=== PATIENT | female | born 1975 | race Caucasian/White ===

== ENCOUNTER 2016-08-20 19:07 | Emergency (ER) | payer BC ==
[2016-08-20] MEDS ORDERED: IBUPROFEN 600 MG TABLET PO ONE (19:15)
[2016-08-20] MEDS ORDERED: HYDROcodone/ACETAMINOPHEN 1 EACH TABLET PO ONE ×2 (19:15→19:55)
--- NOTE | 2016-08-20 19:16 | ERNOTE ---
Lower Extremity HPI - Narrative Date of Service: 08/20/16 - General Lower Extremities Pain: ankle: right Time Seen by Provider: 08/20/16 19:11 Source: patient, RN notes reviewed Exam Limitations: no limitations - Immun/Allergies/Home Medications Allergies/Adverse Reactions: Allergies Allergy/AdvReac Type Severity Reaction Status Date / Time Penicillins Allergy Unknown Verified 08/20/16 19:26 Home Medications: HOME MEDICATIONS HYDROcodone/ACETAMINOPHEN [[place] 5-325] 1 - 2 tab PO Q6H PRN #20 tab 08/20/16 [ Last Taken Unknown] - History of Present Illness Narrative: Savana is a 41 year old female who presents for a right ankle injury. She tripped and twisted the ankle in a parking lot earlier today. She took ibuprofen shortly after and was able to bear weight on the extremity. She then took a nap this afternoon. When she woke up, her pain was much worse and she could not bear weight. She has not had anything for pain since this morning. Occurred: this morning Location of Incident: other Method of Injury: Reports: fell, twisted Other Injuries: Reports: none Subsequent Symptoms: Denies: sensory loss, numbness Review of Systems - Review of Systems Constitutional: Present: no symptoms reported EYE: Present: no symptoms reported ENT: Present: no symptoms reported Respiratory: Present: no symptoms reported Cardiology: Present: no symptoms reported Gastrointestinal/Abdominal: Present: no symptoms reported Genitourinary: Present: no symptoms reported Musculoskeletal: Present: joint pain, joint swelling Skin: Present: change in color. Absent: lesions, lumps Neurological: Absent: weakness, numbness, tingling Endocrine: Present: no symptoms reported Hematologic/Lymphatic: Present: no symptoms reported Psych: Present: no symptoms reported - Patient's Past Medical History Patient History - Medical: No pertinent hx Patient History - Cardiac/Respiratory: No pertinent hx Patient History - Cancer: No Hx of Cancer Patient History - Surgical Procedures: , D & C - Social History Living Situations: spouse Smoking Status: Never smoker Alcohol Use: occasionally Drug Use: none Physical Exam - Physical Exam General Appearance: Present: wd/wn, alert, mild distress Respiratory: Present: no respiratory distress, no accessory muscle use Cardiovascular/Chest: Present: normal peripheral pulses Peripheral Pulses: N=norm/S=strong/W=weak/B=bound/A=absent: Dorsalis-pedis (R): Strong, Dorsalis-pedis (L): Strong Extremity Exam: Present: decreased range of motion - Right ankle - painful, joint swelling - Right lateral ankle, tender to palpation, ecchymosis present Neurological Exam: Present: alert, oriented, normal mood/affect, no motor/ sensory deficits Skin Exam: Present: normal color, warm/dry ED Progress - Vital Signs Patient's Vital Signs:: I have reviewed the patient's vital signs. - X-Ray X-Ray #1 X-Ray: ankle - Right Interpretation: Interp. by me X-ray Comments: Soft tissue swelling noted over lateral malleolus, no acute osseous abnormality noted - Progress/Reassessment Progress:: Improved Progress Note-Subjective: Verbalizes improvement in pain after meds, LETHA wrap to ankle Departure Clinical Impression: Right ankle sprain Qualifiers: Encounter type: initial encounter Involved ligament of ankle: unspecified ligament Qualified Code(s): S93.401A - Sprain of unspecified ligament of right ankle, initial encounter - Departure Disposition: Home self-care Condition: Good Instructions: Ankle Sprain Additional Instructions: Weight bearing as tolerated LETHA wrap for support Ice and elevate Ibuprofen 600 mg every 6 hours with food Follow up as needed Referrals: Moo Willoughby, PAC [[facility]] - Prescriptions: HYDROcodone/ACETAMINOPHEN [[place] 5-325] 1 - 2 tab PO Q6H PRN #20 tab PRN Reason: Pain
[2016-08-20] MEDS ORDERED: HYDROcodone/ACETAMINOPHEN 1 EACH TABLET ONE ×2 (19:19→20:02)
[2016-08-20] MEDS ORDERED: IBUPROFEN 600 MG TABLET ONE (19:19)
[2016-08-20 19:26] VITALS: BP 126/76
[2016-08-20] MEDS ORDERED: oxyCODONE HCL/ACETAMINOPHEN 1 TAB TABLET ONE (20:01)
== END 2016-08-20 20:08 | disposition home or self-care (01) ==
LOC: ER 19:07
DX: S93.401A Sprain of unspecified ligament of right ankle, initial encounter (principal); W19.XXXA Unspecified fall, initial encounter; Y92.481 Parking lot as the place of occurrence of the external cause

== ENCOUNTER 2017-04-10 08:05 | Emergency (ER) | payer BC ==
[2017-04-10 08:15] VITALS: BP 141/83
--- NOTE | 2017-04-10 08:40 | ERNOTE ---
ENT HPI Presenting Symptoms: other - patient complains of sinus pressure, sore throat and mild dizziness and ear pressure Time Seen by Provider: 04/10/17 08:30 Exam Limitations: no limitations - Immun/Allergies/Home Medications Immunizations: IMMUNIZATION HX Immunizations Up to Date Yes History of Influenza Vaccine No Allergies/Adverse Reactions: Allergies Allergy/AdvReac Type Severity Reaction Status Date / Time Penicillins Allergy Unknown Verified 04/10/17 08:15 Home Medications: HOME MEDICATIONS Clarithromycin [Biaxin] 500 mg PO BID #20 tablet 04/10/17 [Last Taken Unknown] Meclizine HCl [Antivert] 25 mg PO QID PRN #20 tablet 04/10/17 [Last Taken Unknown] Ondansetron [Zofran Odt] 4 mg PO Q6H PRN #10 tab 04/10/17 [Last Taken Unknown] - History of Present Illness Narrative: Patient states she has been feeling sinus pressure for over the last week continue to hope it would go away when didn't she decided to seek help. She rates the discomfort as mild to moderate intensity has some minimal vertigo with nausea. Severity: Present: mild, moderate ENT Location: Present: throat Prearrival Treatment: Present: no prearrival treatment Modifying Factors - Improves: Reports: nothing Modifying Factors - Worsens: Reports: nothing Associated Symptoms - ENT: Reports: other - sinus pressure Review of Systems - Review of Systems Constitutional: Present: See HPI EYE: Present: no symptoms reported ENT: Present: See HPI Respiratory: Present: no symptoms reported Cardiology: Present: no symptoms reported Gastrointestinal/Abdominal: Present: nausea Genitourinary: Present: no symptoms reported Musculoskeletal: Present: no symptoms reported Skin: Present: no symptoms reported Neurological: Present: no symptoms reported Endocrine: Present: no symptoms reported Hematologic/Lymphatic: Present: no symptoms reported Psych: Present: no symptoms reported - Patient's Past Medical History Patient History - Medical: No pertinent hx Patient History - Cardiac/Respiratory: No pertinent hx Patient History - Cancer: No Hx of Cancer Patient History - Surgical Procedures: , D & C Patient History - Other: None - Social History Living Situations: home Psych History: No pertinent hx Alcohol Use: occasionally Drug Use: none - Immunizations Immunizations Up to Date: Yes History of Influenza Vaccine: No Physical Exam - Physical Exam General Appearance: Present: wd/wn, alert, mild distress Head Exam: Present: normal inspection Eye Exam: Normal inspection: bilateral, PERRL: bilateral Ears, Nose, Throat: Present: normal ENT inspection, sinus pain/drainage, other - fluid accumulation both ears Neck: Present: normal inspection, nontender Respiratory: Present: no respiratory distress, normal breath sounds, no accessory muscle use, chest nontender, lungs clear Cardiovascular/Chest: Present: regular rate, rhythm, no murmur, normal peripheral pulses Gastrointestinal/Abdominal: Present: normal bowel sounds, nontender, nondistended, soft, no organomegaly Rectal Exam: Present: deferred Back Exam: Present: normal inspection, normal range of motion Extremity Exam: Present: normal inspection, non-tender, no edema, normal range of motion Neurological Exam: Present: alert, oriented, normal mood/affect Skin Exam: Present: normal color, warm/dry Lymphatic Exam: Present: no adenopathy ED Progress - Results and Orders Patient's Lab Results:: I have reviewed the patient's lab results. - Vital Signs Patient's Vital Signs:: I have reviewed the patient's vital signs. Vital Signs: Vital Signs 04/10/17 08:12 Temperature 36.4 C L Pulse Rate 78 Respiratory 12 Rate Blood Pressure 141/83 O2 Sat by Pulse 98 Oximetry - Progress/Reassessment Chief Complaint: Sore Throat Plan - Plan Plan: Patient was started on antibiotics, Antivert for the vertigo and Zofran for the nausea Departure Clinical Impression: Sinusitis Qualifiers: Sinusitis location: frontal Chronicity: acute Recurrence: not specified as recurrent Qualified Code(s): J01.10 - Acute frontal sinusitis, unspecified - Departure Disposition: Home self-care Condition: Good Instructions: Sinusitis, Adult, [id number] Prescriptions: Clarithromycin [Biaxin] 500 mg PO BID #20 tablet Meclizine HCl [Antivert] 25 mg PO QID PRN #20 tablet PRN Reason: Vertigo Ondansetron [Zofran Odt] 4 mg PO Q6H PRN #10 tab PRN Reason: Nausea
== END 2017-04-10 08:48 | disposition home or self-care (01) ==
LOC: ER 08:05
DX: J01.10 Acute frontal sinusitis, unspecified (principal)